=== PATIENT | male | born 1990 | race African-American/Black ===

== ENCOUNTER 2021-08-06 09:02 | Emergency (ER) | payer MEDICAID ==
[~2021-08-06] VITALS: Ht 188 cm; Wt 80.0 kg
[~2021-08-06 09:02] MED LIST: INSULIN HUMALOG SUBCUT; PHEN100C4 PO
[2021-08-06] MEDS ORDERED: LEVETIRACETAM 1000MG PREMIX 100 ML IV ONE (10:00)
[2021-08-06 10:25] LABS: HEMATOCRIT. 50.9 % (42.0-52.0); HEMOGLOBIN. 16.9 g/dL (14.0-18.0); MEAN CORPUSCULAR HEMOGLOBIN 27.2 pg (28.0-32.0); MEAN CORPUSCULAR VOLUME 81.8 fL (80.0-94.0); PLATELET 222 x1000/uL (130-400); RED BLOOD CELL COUNT 6.22 mill/uL (4.7-6.1); RED CELL DISTRIBUTION WIDTH 12.7 % (11.6-14.6)
[2021-08-06 11:45] LABS: PLATELET ESTIMATE NORMAL
[2021-08-06 12:37] LABS: CHLORIDE 108 mEq/L (98-107)
[2021-08-06 12:44] LABS: ETHANOL BLOOD < 10 mg/dL
[2021-08-06] MEDS ORDERED: POTASSIUM CHLORIDE 20MEQ TABLET SR PO ONE (13:00)
[2021-08-06] MEDS ORDERED: PHEN100C4 PO (13:00)
[2021-08-06] MEDS ORDERED: KCL 20MEQ/100ML PREMIX 100 ML IV ONE (13:00)
[2021-08-06 13:45] VITALS: BP 127/87
== END 2021-08-06 14:00 | disposition home or self-care (01) ==
LOC: ER 09:13
DX: G40.909 Epilepsy, unspecified, not intractable, without status epilepticus (principal); E11.9 Type 2 diabetes mellitus without complications; E87.6 Hypokalemia; Z79.899 Other long term (current) drug therapy; Z91.14 Patient's other noncompliance with medication regimen
CPT/HCPCS: 36415; 80053; 80320; 85025; 93005; 96365; 96366; 99284; J1953; J3480; G0480

== ENCOUNTER 2021-09-03 12:30 | Emergency (ER) | payer MEDICAID ==
[~2021-09-03] VITALS: Ht 170.2 cm; Wt 69.0 kg
[2021-09-03] MEDS ORDERED: DEXTROSE 50% WATER 50ML SYRINGE IV ONE (12:45)
[2021-09-03 13:51] LABS: BASOPHILS % 0.5 % (0.0-2.0); EOSINOPHILS % 0.2 % (0.0-5.0); HEMATOCRIT. 43.9 % (42.0-52.0); HEMOGLOBIN. 14.6 g/dL (14.0-18.0); LYMPHOCYTES % 13.5 % (20.0-50.0); MEAN CORPUSCULAR HEMOGLOBIN 27.2 pg (28.0-32.0); MEAN CORPUSCULAR VOLUME 81.6 fL (80.0-94.0); MEAN PLATELET VOLUME 7.4 fl (7.4-10.4); NEUTROPHILS % 77.8 % (40.0-76.0); PLATELET 405 x1000/uL (130-400); RED BLOOD CELL COUNT 5.38 mill/uL (4.7-6.1)
[2021-09-03 14:01] LABS: CHLORIDE 105 mEq/L (98-107)
[2021-09-03 14:05] LABS: ETHANOL BLOOD < 10 mg/dL
[2021-09-03 14:11] LABS: CLARITY URINE CLEAR (CLEAR); COLOR URINE YELLOW (YELLOW); KETONES URINE NEGATIVE (NEGATIVE); LEUKOCYTE ESTERASE URINE NEGATIVE (NEGATIVE); NITRITE URINE NEGATIVE (NEGATIVE); OCCULT BLOOD URINE NEGATIVE (NEGATIVE); PH URINE 7.5 (4.5-8.0); PROTEIN URINE NEGATIVE (NEGATIVE); SPECIFIC GRAVITY URINE 1.012 (1.005-1.030); UROBILINOGEN URINE 0.2 E.U./dL (0.2-1.0)
[2021-09-03 14:28] LABS: *AMPHETAMINES SCREEN URINE NEGATIVE (NEGATIVE); *BARBITURATES SCREEN URINE NEGATIVE (NEGATIVE); *BENZODIAZEPINES SCREEN URINE NEGATIVE (NEGATIVE); *COCAINE SCREEN URINE NEGATIVE (NEGATIVE); METHADONE URINE SCREEN NEGATIVE (NEGATIVE); OPIATES URINE SCREEN NEGATIVE (NEGATIVE)
[2021-09-03 14:29] LABS: CANNABINOID URINE SCREEN NEGATIVE (NEGATIVE); PHENCYCLIDINE URINE SCREEN NEGATIVE (NEGATIVE)
[2021-09-03] MEDS ORDERED: INSULIN GLARGINE UD 100 UNITS/ML SYR SUBCUT ONE ×2 (20:15→23:15)
[2021-09-03] MEDS ORDERED: ACETAMINOPHEN 325MG TABLET PO ONE (20:15)
[2021-09-03] MEDS ORDERED: INSULIN REGULAR (HUMULIN R) UD 100 UNITS/ML SYR SUBCUT ONE (23:15)
[2021-09-03] MEDS ORDERED: INSULIN REGULAR (HUMULIN R) 300UNITS/3ML VIAL SUBCUT NR (23:30)
[2021-09-04] MEDS ORDERED: INSULIN REGULAR (HUMULIN R) 300UNITS/3ML VIAL SUBCUT ONE ×2 (17:45→20:15)
[2021-09-04] MEDS ORDERED: LACTATED RINGERS 1,000 ML IV SCH ×2 (20:15)
[2021-09-04 20:17] VITALS: BP 121/90
[2021-09-04] MEDS ORDERED: ARIPIPRAZOLE 5MG TABLET PO ONE (21:00)
== END 2021-09-04 21:04 | disposition short-term general hospital (02) ==
LOC: ER 13:09
DX: R45.851 Suicidal ideations (principal); T38.3X2A Poisoning by insulin and oral hypoglycemic [antidiabetic] drugs, intentional self-harm, initial encounter; E11.65 Type 2 diabetes mellitus with hyperglycemia; I49.9 Cardiac arrhythmia, unspecified; Z20.822 Contact with and (suspected) exposure to COVID-19; Z86.59 Personal history of other mental and behavioral disorders; Y92.9 Unspecified place or not applicable
CPT/HCPCS: 36415; 71045; 80053; 80305; 80307; 80320; 80329; 81003; 82962; 84443; 85025; 87426; 87635; 93005; 96372; 96374; 99285; J1815; G0480